=== PATIENT | female | born 1955 | race Caucasian/White ===

== ENCOUNTER → 2016-12-18 | Outpatient (CLI) | payer OTHER ==
[~2016-12-18] MED LIST: BAYER ASPIRIN325 MG PO; CILOXAN 5 ML5 M1; CILOXAN 5 ML5 M1 OT; CIPRODEX 0.3%-7.5 M1 OT; CYCLOBENZAPRINE10 MG PO; IMITREX25 MG PO; METOPROLOL25 MG PO; Motrin,Rufen800 MG PO; PREMARIN0.3 MG PO; PREMARIN0.625 MG PO; TOPAMAX2 MG PO; TOPAMAX25 M1 PO; XANAX0.5 MG PO
== END | disposition home or self-care (01) ==
LOC: MRI 14:45
DX: M47.896 Other spondylosis, lumbar region (principal)

== ENCOUNTER 2018-02-23 19:43 | Inpatient (IN) | payer OTHER ==
[~2018-02-23] VITALS: Ht 167.6 cm; Wt 71.2 kg
--- NOTE | ~2018-02-23 | CON ---
[place], [place] REPORT OF CONSULTATION NAME: BRUNILDA KIRK UNIT #: [id number] ROOM: 425 DOCTOR: BRITNEY VARGHESE MD BIRTHDATE: [birth year] DOS: 02/24/2018 REASON FOR CONSULTATION: Epigastric pain, radiating into the chest with diaphoresis, nausea, dyspnea. HISTORY OF PRESENT ILLNESS: The patient is a 62-year-old woman who has no previously documented history of coronary artery disease. She did have atypical chest pain several years ago. A cardiac catheterization done at the [facility] on 03/11/2008 was a normal examination. She states that she has had episodes of epigastric pain which can come on at rest or after food. She does not appear to have exertional pain. Last evening while at rest, she did develop epigastric pain, which became severe. She stated that it hurt to take a deep breath and it was associated with nausea and diaphoresis. She became concerned and called emergency medical services and was transferred to [facility]. Her electrocardiogram showed nonspecific T-wave flattening in the anterior precordial leads. She did not have any elevation in troponin. Symptoms were relieved in the ambulance with narcotics and she has not had any recurrence of her pain since then. PAST MEDICAL HISTORY: Includes 1. Essential hypertension. 2. Atypical chest pain, status post cardiac catheterization in 2007. Normal coronaries noted. 3. Low back pain and lumbar strain. 4. Status post hysterectomy after 2 previous sections. MEDICATIONS: Prior to admission, alprazolam 0.5 mg q. 6 hours p.r.n., bupropion 150 mg daily, conjugated estrogens 0.625 mg at bedtime, losartan 25 mg daily and ranitidine 150 mg daily. ALLERGIES: The patient has no known drug allergies. FAMILY HISTORY: Negative for early coronary artery disease. REVIEW OF SYSTEMS: The patient denies diplopia or loss of vision. She denies focal weakness. She denies lightheadedness or syncope. She did have nausea, but no vomiting. She did have diaphoresis. She denies fevers, chills or recent weight change. She denies orthopnea or PND. She denies hemoptysis or hematemesis. She did have shortness of breath during the event. She denies blood in her urine or stools. She denies any change in bowel or bladder habits. She denies any peripheral edema or skin rashes. The remainder of the review of systems is negative except as noted above. SOCIAL HISTORY: The patient is . She does not smoke or consume significant amounts of alcohol. PHYSICAL EXAMINATION: GENERAL: The patient is well-nourished white female, awake, alert and oriented. VITAL SIGNS: Pulse is 67 and regular, blood pressure is 107/60. She is afebrile. She weighs 71.2 kg and has a body mass index 25.4. [place], [place] REPORT OF CONSULTATION NAME: BRUNILDA KIRK UNIT #: [id number] ROOM: 425 DOCTOR: BRITNEY VARGHESE MD BIRTHDATE: [birth year] HEENT: Normocephalic and atraumatic. Extraocular muscles are intact. Sclerae are clear. Pupils are equal, round and react to light. The oral mucosa is moist. Tongue is midline. NECK: Supple. She has no jugular distention. Carotids are full. I heard no bruits. She had no neck or supraclavicular masses and no thyromegaly. LUNGS: Respirations are unlabored. Her chest is clear to auscultation and percussion. She has no presacral edema or chest wall tenderness. CARDIOVASCULAR: Her heart has a regular rhythm without murmurs, rubs or gallops. The PMI is not displaced. There is no precordial heave, lift or thrill. ABDOMEN: Soft and normally active without masses, organomegaly or bruits. She had no Bustillos sign. There was no rebound. EXTREMITIES: Showed no clubbing, cyanosis or edema. Peripheral pulses are easily palpated in the feet. LABORATORY DATA: I reviewed her electrocardiogram, which showed sinus rhythm with nonspecific anterior T-wave flattening, but no acute ST elevation or depression. Serial troponin levels are normal. Hemoglobin is 12.6, hematocrit 38.4. There are 8500 white cells and 298,000 platelets. Sodium is 142, potassium 4.0, BUN 14, creatinine 0.82. Alkaline phosphatase is 90. TSH is 3.56. Chest x-ray was unremarkable. Abdominal ultrasound does show sludge and stones within the gallbladder, but no gallbladder wall thickening or biliary dilatation. IMPRESSION: 1. Epigastric pain, etiology to be determined. 2. History of hypertension, controlled. PLAN: The patient's symptoms are consistent with unstable angina, but she does not have any diagnostic EKG changes or elevation in troponin to support this diagnosis. We will evaluate her further with an exercise myocardial perfusion study. 0It is my understanding that she will undergo surgical evaluation as well for her abnormal gallbladder. I thank the hospitalist physicians for asking our advice regarding the patient's care. BRITNEY VARGHESE MD CM:CONSTR:REPORT OF CONSULTATION 1120 02/24/18 1144 interface
[2018-02-23 19:54] VITALS: BP 131/71
[2018-02-23 20:02] VITALS: BP 138/80
[2018-02-23 20:38] LABS: BASO # 0.1 10*3/uL (0.0-0.1); BASO % 0.5 % (0.0-1.0); EOS # 0.4 10*3/uL (0.0-0.4); EOS % 4.1 % (1.0-4.0); HEMATOCRIT 40.4 % (37.0-47.0); LYMPH # 2.4 10*3/uL (1.3-4.4); LYMPH % 23.5 % (27.0-41.0); MEAN CORPUSCULAR HGB 30.2 pg (27.0-31.0); MEAN CORPUSCULAR HGB CONC 32.2 g/dl (33.0-37.0); MEAN PLATELET VOLUME 10.1 fl (9.6-12.3); MONO # 0.8 10*3/uL (0.1-1.0); NEUT # 6.5 10*3/uL (2.3-7.9); NEUT % 63.4 % (47.0-73.0); PLATELET COUNT AUTOMATED 305 10*3/uL (130-400); RED CELL DISTRI WIDTH 12.7 % (0-14.5); WHITE BLOOD COUNT 10.3 10*3/uL (4.8-10.8)
[2018-02-23 20:55] LABS: ALBUMIN 3.2 gm/dl (3.1-4.5); ALKALINE PHOSPHATASE 98 U/L (45-117); BUN 15 mg/dl (7-24); CHLORIDE 104 mmol/L (98-107); CREATININE 0.84 mg/dL (0.55-1.02); LIPASE 123 U/L (73-393); POTASSIUM 3.8 mmol/L (3.5-5.1); SGOT/AST 22 IU/L (3-35); SGPT/ALT 19 U/L (12-78); SODIUM 142 mmol/L (136-145); TOTAL PROTEIN 6.9 gm/dL (6.4-8.2)
[2018-02-23 20:59] LABS: TROPONIN I < 0.015 ng/ml (<0.045)
[2018-02-23 21:21] VITALS: BP 125/77
[2018-02-23] MEDS ORDERED: COZAAR25 M1 PO (21:25)
[2018-02-23] MEDS ORDERED: ZANTAC 150150 MG PO (21:25)
[2018-02-23] MEDS ORDERED: WELLBUTRIN SR150 MG PO (21:25)
[2018-02-23 21:38] VITALS: BP 133/68
[2018-02-24] VITALS: BP 116/66
[2018-02-24 06:22] LABS: BASO # 0.1 10*3/uL (0.0-0.1); BASO % 0.7 % (0.0-1.0); EOS # 0.5 10*3/uL (0.0-0.4); EOS % 5.4 % (1.0-4.0); HEMATOCRIT 38.4 % (37.0-47.0); HEMOGLOBIN 12.6 g/dl (12.0-16.0); LYMPH # 3.3 10*3/uL (1.3-4.4); LYMPH % 38.1 % (27.0-41.0); MEAN CELL VOLUME 93.9 fl (81.0-99.0); MEAN CORPUSCULAR HGB 30.8 pg (27.0-31.0); MEAN CORPUSCULAR HGB CONC 32.8 g/dl (33.0-37.0); MEAN PLATELET VOLUME 10.5 fl (9.6-12.3); MONO # 0.6 10*3/uL (0.1-1.0); NEUT # 4.2 10*3/uL (2.3-7.9); NEUT % 48.7 % (47.0-73.0); PLATELET COUNT AUTOMATED 298 10*3/uL (130-400); RED BLOOD COUNT 4.09 10*6/uL (4.10-5.10); WHITE BLOOD COUNT 8.5 10*3/uL (4.8-10.8)
[2018-02-24 06:26] LABS: ALBUMIN 2.9 gm/dl (3.1-4.5); ALKALINE PHOSPHATASE 90 U/L (45-117); BUN 14 mg/dl (7-24); CHLORIDE 105 mmol/L (98-107); CHOLESTEROL 184 mg/dL (<200); CREATININE 0.82 mg/dL (0.55-1.02); FREE T4 1.08 ng/dl (0.76-1.46); HDL CHOLESTEROL 73 mg/dl (40-60); LDL CHOLESTEROL 86 mg/dL (9-159); SGOT/AST 17 IU/L (3-35); SGPT/ALT 20 U/L (12-78); SODIUM 142 mmol/L (136-145); TOTAL PROTEIN 6.4 gm/dL (6.4-8.2); TRIGLYCERIDES 124 mg/dl (<150); VLDL CHOLESTEROL 25 mg/dL (6-40)
[2018-02-24 06:42] LABS: ACT PARTIAL THROMBO TIME 24.7 SECONDS (20.8-31.5); INTERNATIONAL NORM RATIO 0.9 (2.0-3.5)
[2018-02-24 07:38] LABS: VITAMIN D, 25-HYDROXY 35.7 ng/mL (30-100)
[2018-02-24 08:00] VITALS: BP 107/60
[2018-02-24 12:00] VITALS: BP 157/66
[2018-02-24 16:00] VITALS: BP 132/77
[2018-02-24] MEDS ORDERED: PROTONIX40 M1 IV (16:27)
[2018-02-24] MEDS ORDERED: Motrin,Rufen800 MG PO (17:03)
== END 2018-02-24 17:30 | disposition home or self-care (01) | DRG 313 ==
LOC: ED 19:43 → 4E 21:06 → EDHOLD 21:06 → 4E 21:18
PROVIDERS: Family Medicine; Student in an Organized Health Care Education/Training Program
PROC: 4A02XM4 Measurement of Cardiac Total Activity, External Approach (ICD-10-PCS; principal; 2018-02-24)
DX: R07.9 Chest pain, unspecified (principal); E44.0 Moderate protein-calorie malnutrition; F32.9 Major depressive disorder, single episode, unspecified; G43.909 Migraine, unspecified, not intractable, without status migrainosus; I10 Essential (primary) hypertension; K80.20 Calculus of gallbladder without cholecystitis without obstruction; K21.9 Gastro-esophageal reflux disease without esophagitis; Z83.3 Family history of diabetes mellitus; Z90.710 Acquired absence of both cervix and uterus; Z68.25 Body mass index [BMI] 25.0-25.9, adult

== ENCOUNTER → 2019-02-24 | Outpatient (CLI) | payer BC ==
[~2019-02-24] MED LIST changes: +COZAAR25 M1 PO; +PROTONIX40 M1 IV; +WELLBUTRIN SR150 MG PO; +ZANTAC 150150 MG PO
[2019-02-24 10:47] LABS: HEMATOCRIT 42.6 % (37.0-47.0); HEMOGLOBIN 13.8 g/dl (12.0-16.0); MEAN CELL VOLUME 94.2 fl (81.0-99.0); MEAN CORPUSCULAR HGB 30.5 pg (27.0-31.0); MEAN CORPUSCULAR HGB CONC 32.4 g/dl (33.0-37.0); MEAN PLATELET VOLUME 10.6 fl (9.6-12.3); RED BLOOD COUNT 4.52 10*6/uL (4.10-5.10); RED CELL DISTRI WIDTH 12.3 % (0-14.5); WHITE BLOOD COUNT 7.5 10*3/uL (4.8-10.8)
[2019-02-24 11:11] LABS: ALBUMIN 3.2 gm/dl (3.1-4.5); ALKALINE PHOSPHATASE 82 U/L (45-117); BUN 10 mg/dl (7-24); CHLORIDE 105 mmol/L (98-107); CHOLESTEROL 213 mg/dL (<200); CREATININE 0.82 mg/dL (0.55-1.02); FREE T4 1.21 ng/dl (0.76-1.46); HDL CHOLESTEROL 77 mg/dl (40-60); LDL CHOLESTEROL 113 mg/dL (9-159); POTASSIUM 3.5 mmol/L (3.5-5.1); SGOT/AST 9 IU/L (3-35); SGPT/ALT 15 U/L (12-78); SODIUM 141 mmol/L (136-145); TOTAL PROTEIN 6.9 gm/dL (6.4-8.2); TRIGLYCERIDES 113 mg/dl (<150); VLDL CHOLESTEROL 23 mg/dL (6-40)
[2019-02-24 11:29] LABS: VITAMIN D, 25-HYDROXY 31.7 ng/mL (30-100)
== END | disposition home or self-care (01) ==
LOC: LAB 10:06
PROVIDERS: Physician Assistant
DX: K21.9 Gastro-esophageal reflux disease without esophagitis (principal); E55.9 Vitamin D deficiency, unspecified; F41.9 Anxiety disorder, unspecified

== ENCOUNTER → 2020-12-29 | Outpatient (CLI) | payer BC | END | disposition home or self-care (01) | LOC: COVID19 12:25 | PROVIDERS: ATTEND Internal Medicine | DX: Z20.822 Contact with and (suspected) exposure to COVID-19 (principal) ==

== ENCOUNTER → 2021-04-04 | Outpatient (CLI) | payer BC | END | disposition home or self-care (01) | LOC: CARD 08:51 | PROVIDERS: ATTEND Physician Assistant | DX: R00.2 Palpitations (principal) ==

== ENCOUNTER → 2024-01-17 | Outpatient (CLI) | payer MEDICARE ==
[~2024-01-17] MED LIST changes: +AVAPRO75 MG PO; +CYMBALTA30 MG PO; +DICLOFENAC SOD50 MG PO; +MICRONIZED COLES1 GM PO; +MYRBETRIQ50 M1 PO
== END | disposition home or self-care (01) ==
LOC: LAB 16:35
PROVIDERS: ATTEND Physician Assistant
DX: R51.9 Headache, unspecified (principal); R53.83 Other fatigue

== ENCOUNTER 2025-02-25 15:21 | Emergency (ER) | payer MEDICARE ==
[~2025-02-25] VITALS: Ht 167.6 cm; Wt 73.0 kg
[2025-02-25 16:03] LABS: BASO # 0.1 10*3/uL (0.0-0.1); BASO % 1.1 % (0.0-1.0); EOS # 0.5 10*3/uL (0.0-0.4); EOS % 7.2 % (1.0-4.0); HEMATOCRIT 37.4 % (37.0-47.0); MEAN CELL VOLUME 89.5 fl (81.0-99.0); MEAN CORPUSCULAR HGB 28.5 pg (27.0-31.0); MEAN CORPUSCULAR HGB CONC 31.8 g/dl (33.0-37.0); MEAN PLATELET VOLUME 9.5 fl (9.6-12.3); MONO # 0.5 10*3/uL (0.1-1.0); MONO % 7.6 % (3.0-9.0); NEUT # 3.5 10*3/uL (2.3-7.9); NEUT % 48.9 % (47.0-73.0); PLATELET COUNT AUTOMATED 363 10*3/uL (130-400); RED BLOOD COUNT 4.18 10*6/uL (4.10-5.10); RED CELL DISTRI WIDTH 13.5 % (0-14.5); WHITE BLOOD COUNT 7.1 10*3/uL (4.8-10.8)
[2025-02-25 16:29] LABS: BUN 14 mg/dl (9-23); CHLORIDE 105 mmol/L (98-107); POTASSIUM 3.5 mmol/L (3.4-5.1)
[2025-02-25] MEDS ORDERED: LASIX20 MG PO (16:43)
== END 2025-02-25 16:46 | disposition home or self-care (01) ==
LOC: ED 15:21
DX: I89.0 Lymphedema, not elsewhere classified (principal); I10 Essential (primary) hypertension; F41.9 Anxiety disorder, unspecified; R06.02 Shortness of breath; Z79.899 Other long term (current) drug therapy; Z98.890 Other specified postprocedural states; Z90.49 Acquired absence of other specified parts of digestive tract; Z90.710 Acquired absence of both cervix and uterus; R63.5 Abnormal weight gain

== ENCOUNTER 2025-03-01 10:30 | Emergency (ER) | payer MEDICARE ==
[~2025-03-01] VITALS: Ht 167.6 cm; Wt 72.6 kg
[~2025-03-01 10:30] MED LIST changes: +LASIX20 MG PO
[2025-03-01 11:01] LABS: BASO # 0.1 10*3/uL (0.0-0.1); BASO % 1.3 % (0.0-1.0); EOS # 0.5 10*3/uL (0.0-0.4); EOS % 6.8 % (1.0-4.0); HEMATOCRIT 37.1 % (37.0-47.0); MEAN CELL VOLUME 89.2 fl (81.0-99.0); MEAN CORPUSCULAR HGB 28.1 pg (27.0-31.0); MEAN CORPUSCULAR HGB CONC 31.5 g/dl (33.0-37.0); MEAN PLATELET VOLUME 9.5 fl (9.6-12.3); MONO # 0.6 10*3/uL (0.1-1.0); MONO % 8.1 % (3.0-9.0); NEUT # 3.4 10*3/uL (2.3-7.9); NEUT % 50.5 % (47.0-73.0); PLATELET COUNT AUTOMATED 385 10*3/uL (130-400); RED BLOOD COUNT 4.16 10*6/uL (4.10-5.10); RED CELL DISTRI WIDTH 13.3 % (0-14.5); WHITE BLOOD COUNT 6.8 10*3/uL (4.8-10.8)
[2025-03-01 11:15] LABS: ACT PARTIAL THROMBO TIME 25.1 SECONDS (20.0-32.1)
[2025-03-01 11:31] LABS: ALKALINE PHOSPHATASE 102 U/L (46-116); BUN 15 mg/dl (9-23); CHLORIDE 104 mmol/L (98-107); POTASSIUM 3.6 mmol/L (3.4-5.1); SGPT/ALT < 7 U/L (5-49); TOTAL PROTEIN 6.6 gm/dL (6.0-8.0)
[2025-03-01] MEDS ORDERED: SODIUM CHLORIDE 0.9% 100 ML BAG IV ONE (12:55)
[2025-03-01] MEDS ORDERED: IOHEXOL 350 MG/ML 100 ML VIAL IV ONE ×2 (12:55→13:16)
[2025-03-01] MEDS ORDERED: SODIUM CHLORIDE 0.9% 100 ML IV ONE (13:16)
== END 2025-03-01 15:34 | disposition home or self-care (01) ==
LOC: ED 10:30
PROVIDERS: Internal Medicine
DX: R06.02 Shortness of breath (principal); R00.2 Palpitations; F41.9 Anxiety disorder, unspecified; I10 Essential (primary) hypertension; E78.5 Hyperlipidemia, unspecified; Z79.899 Other long term (current) drug therapy; Z90.49 Acquired absence of other specified parts of digestive tract; Z90.710 Acquired absence of both cervix and uterus; Z98.890 Other specified postprocedural states

== ENCOUNTER → 2025-03-15 | Outpatient (CLI) | payer MEDICARE ==
[~2025-03-15] MED LIST changes: +Regadenoson 0.4 MG/5 ML SYR IV ONE; +Technetium Tc 99M Tetrofosmi 0.23 MG KIT IJ SCH
== END | disposition home or self-care (01) ==
LOC: CARD 01:26 → US 10:30
PROVIDERS: ATTEND Physician Assistant
DX: I65.23 Occlusion and stenosis of bilateral carotid arteries (principal); I35.1 Nonrheumatic aortic (valve) insufficiency; I11.9 Hypertensive heart disease without heart failure; R55 Syncope and collapse; R06.02 Shortness of breath; R07.9 Chest pain, unspecified; R53.83 Other fatigue

== ENCOUNTER → 2025-09-07 | Outpatient (CLI) | payer MEDICARE ==
[~2025-09-07] MED LIST changes: -Regadenoson 0.4 MG/5 ML SYR IV ONE; -Technetium Tc 99M Tetrofosmi 0.23 MG KIT IJ SCH
== END | disposition home or self-care (01) ==
LOC: RAD 12:21
PROVIDERS: ATTEND Physician Assistant
DX: R06.00 Dyspnea, unspecified (principal); I25.10 Atherosclerotic heart disease of native coronary artery without angina pectoris

== ENCOUNTER → 2025-09-10 | Outpatient (CLI) | payer MEDICARE | END | disposition home or self-care (01) | LOC: LAB 14:34 | PROVIDERS: ATTEND Nurse Practitioner Family | DX: R35.0 Frequency of micturition (principal) ==